=== PATIENT | male | born 1970 | race Caucasian/White ===

== ENCOUNTER 2016-05-21 23:55 | Emergency (ER) | payer BC ==
[2016-05-22] MEDS ORDERED: Aspirin Low Dose CHEW TAB* 81 MG PO ONE (00:20)
[2016-05-22] MEDS ORDERED: Nitroglycerin TAB 0.4 MG* 0.4 MG TAB SL PRN (00:20)
--- NOTE | 2016-05-22 00:59 | ED ---
Juan Miller Karl, scribed for Helder Hadley MD on 05/22/16 at 0012 . HPI Chest Pain - HPI Summary HPI Summary: Pt is a 46 y/o male that presents to the ED c/o non-radiating chest pain that began at approx 23:30 while the pt was getting ready to go to bed. Pt reported that his CP is a "tightness and burning" pain rated at a 6/10 at the worst and is currently at a 3/10. Pt also reported mild nausea and "clammyness" when he felt the initial CP. Hx: obesity, HTN. - History of Current Complaint Chief Complaint: EDChestPainROMI Time Seen by Provider: 05/22/16 00:00 Hx Obtained From: Patient Onset/Duration: Started Minutes Ago Timing: Constant, Lasting Minutes Initial Severity: Moderate Current Severity: Moderate Pain Intensity: 5 - CP Pain Scale Used: 0-10 Numeric Chest Pain Location: Left Anterior Character: Burning, Tightness Associated Signs and Symptoms: Positive: Chest Pain, Nausea - Allergy/Home Medications Allergies/Adverse Reactions: Allergies Allergy/AdvReac Type Severity Reaction Status Date / Time No Known Allergies Allergy Verified 09/01/15 12:23 PMH/Surg Hx/FS Hx/Imm Hx Endocrine/Hematology History: Denies: Hx Diabetes, Hx Thyroid Disease Cardiovascular History: Reports: Hx Hypertension Denies: Hx Hypercholesterolemia, Hx Pacemaker/ICD, Hx Peripheral Vascular Disease Musculoskeletal History: Denies: Hx Arthritis, Hx Rheumatoid Arthritis, Hx Osteoporosis, Hx Scoliosis Sensory History: Denies: Hx Cataracts, Hx Contacts or Glasses, Hx Glaucoma, Hx Hearing Aid Opthamlomology History: Denies: Hx Cataracts, Hx Contacts or Glasses, Hx Glaucoma Neurological History: Denies: Hx Headaches, Hx Seizures, Hx Transient Ischemic Attacks (TIA), Other Neuro Impairments/Disorders Psychiatric History: Reports: Hx Anxiety, Hx Depression Denies: Hx Panic Disorder - Surgical History Surgery Procedure, Year, and Place: WISDOM TEETH Infectious Disease History: No Infectious Disease History: Denies: Traveled Outside the [place] in Last 30 Days - Family History Known Family History: Positive: Cardiac Disease - father - [place] at 60 y/o, Hypertension, Other - obesity Negative: Diabetes - Social History Alcohol Use: None Hx Substance Use: No Substance Use Type: Reports: None Hx Tobacco Use: Yes Smoking Status (MU): Former Smoker Review of Systems Positive: Skin Diaphoresis - "clammyness" Eyes: Negative ENT: Negative Positive: Chest Pain Respiratory: Negative Positive: Nausea Genitourinary: Negative Musculoskeletal: Negative Skin: Negative Neurological: Negative Psychological: Normal All Other Systems Reviewed And Are Negative: Yes Physical Exam Triage Information Reviewed: Yes Vital Signs On Initial Exam: Initial Vitals Temp Pulse Resp BP Pulse Ox 98.3 F 65 20 181/111 97 05/21/16 23:56 05/21/16 23:56 05/21/16 23:56 05/21/16 23:56 05/21/16 23:56 Vital Signs Reviewed: Yes Appearance: Positive: Pain Distress - mild discomfort, Obese Skin: Positive: Warm Head/Face: Positive: Normal Head/Face Inspection Eyes: Positive: ALEXIA ENT: Positive: Hearing grossly normal Neck: Positive: Supple Respiratory/Lung Sounds: Positive: Clear to Auscultation, Breath Sounds Present Cardiovascular: Positive: Normal. Negative: Murmur Abdomen Description: Positive: Nontender, Soft Bowel Sounds: Positive: Present Musculoskeletal: Positive: Strength/ROM Intact Neurological: Positive: Sensory/Motor Intact, Alert, Oriented to Person Place, Time, Normal Gait Psychiatric: Positive: Affect/Mood Appropriate Diagnostics - Vital Signs Vital Signs Temp Pulse Resp BP Pulse Ox 05/21/16 23:56 98.3 F 65 20 181/111 97 - Laboratory Result Diagrams: 05/22/16 01:00 05/22/16 01:00 Lab Statement: Any lab studies that have been ordered have been reviewed, and results considered in the medical decision making process. - Radiology CXR Xray Interpretation: No Acute Changes Radiology Interpretation Completed By: ED Physician - IMPRESSION: No cardiopulmonary pathology noted. - EKG 00:04 EKG Interpretation: NSR at 64 bpm, No STEMI Re-Evaluation - Re-Evaluation First Eval Re-Evaluation Time: 05:00 Change: Improved - results d/w pt, need for admission in this pt with mult risk factors, good story, pt does not want to stay in hospital, wants to leave ama, explained risks including mi, . pt understands and accepts risk Chest Pain Course/Dx - Course Course Of Treatment: Pt was explained the risks of leaving the hospital AMA and fully understands the potential consequences including loss of life. - Diagnoses Provider Diagnoses: ACS (acute coronary syndrome) - Provider Notifications Discussed Care Of Patient With: Dr. Cook (Hospitalist) at 05:03 who agreed to admit the pt. Discharge - Discharge Plan Condition: Fair Disposition: AGAINST MEDICAL ADVICE Referrals: Jonah ORDONEZ,Moreno Rogers [Primary Care Provider] - The documentation as recorded by the josefinaibJuan ayala Karl accurately reflects the service I personally performed and the decisions made by me, Helder Hadley MD.
[2016-05-22 01:16] LABS: Hematocrit 41 % (42-52); Hemoglobin 13.7 g/dl (14.0-18.0); Mean Corpuscular HGB Conc 34 g/dl (31-36); Mean Corpuscular Hemoglobin 30 pg (27-31); Mean Corpuscular Volume 88 fL (80-94); Mean Platelet Volume 8 um3 (7.4-10.4); Red Blood Count 4.61 10^6/ul (4.0-5.4); Red Cell Distribution Width 14 % (10.5-15); White Blood Count 7.3 10^3/ul (3.5-10.8)
[2016-05-22 01:33] LABS: Albumin 3.6 g/dL (3.2-5.2); BUN/Creatinine Ratio 23.5 (8-20); Calcium 9.3 mg/dL (8.6-10.3); EGFR African American 162.2 (>60); EGFR Non-African American 126.1 (>60); Globulin 3.4 g/dL (2-4); Magnesium 1.9 mg/dL (1.9-2.7); Total Bilirubin 0.3 mg/dL (0.2-1.0)
[2016-05-22 01:58] LABS: Potassium 3.7 mmol/L (3.5-5.0)
[2016-05-22] MEDS ORDERED: Acetaminophen TAB* 325 MG PO PRN (05:08)
[2016-05-22] MEDS ORDERED: Albuterol 2.5 MG/3 ML NEB.SOL* (0.083%) INH PRN (05:10)
[2016-05-22] MEDS ORDERED: Metoprolol Succinate XL TAB* 25 MG PO ONE (05:11)
[2016-05-22] MEDS ORDERED: traMADol TAB* 50 MG PO PRN (05:12)
[2016-05-22] MEDS ORDERED: Ondansetron INJ* 2 MG/ML VIAL IV PRN (05:12)
[2016-05-22] MEDS ORDERED: Morphine INJ* 2 MG/ML 1 ML CARPUJECT IV PRN (05:12)
[2016-05-22] MEDS ORDERED: NS 0.9% 1000 ML* 1,000 ML IV SCH (05:15)
[2016-05-22 05:36] VITALS: BP 128/69
[2016-05-22] MEDS ORDERED: Omeprazole CAP* 20 MG PO SCH (06:00)
--- NOTE | 2016-05-22 07:34 | RAD ---
HISTORY: Chest pain COMPARISONS: September 01, 2015 VIEWS: 2: Frontal dual-energy and lateral views of the chest. FINDINGS: CARDIOMEDIASTINAL SILHOUETTE: The cardiomediastinal silhouette is stable. LIGIA: The ligia are normal. PLEURA: The costophrenic angles are sharp. No pleural abnormalities are noted. LUNG PARENCHYMA: The lungs are clear. ABDOMEN: The upper abdomen is clear. There is no subphrenic gas. BONES AND SOFT TISSUES: No bone or soft tissue abnormalities are noted. OTHER: None. IMPRESSION: NO ACTIVE CARDIOPULMONARY DISEASE.
[2016-05-22] MEDS ORDERED: Aspirin TAB* 325 MG PO SCH (09:00)
[2016-05-22] MEDS ORDERED: Docusate CAP* 100 MG PO SCH (09:00)
[2016-05-23] MEDS ORDERED: Heparin VIAL(*) 5000 UNITS/ML VIAL (FIVE THOUSAND) SUBCUT SCH (06:00)
== END 2016-05-22 05:36 | disposition left against medical advice (07) ==
LOC: ED 23:55
DX: J40 Bronchitis, not specified as acute or chronic (principal); R05 Cough; R06.02 Shortness of breath; F41.9 Anxiety disorder, unspecified
CPT/HCPCS: 36415; 71020; 80053; 83605; 83735; 84484; 85025; 93005; 96361; 96374; 99282; A9270-GY

== ENCOUNTER 2016-06-03 19:51 | Emergency (ER) | payer BC ==
[2016-06-03 21:30] VITALS: BP 186/103
--- NOTE | 2016-06-03 21:43 | UC ---
Hypertension HPI - HPI Summary HPI Summary: 46 yo male with elevated BP states he has been under a lot of pressure at work felt anxious and checked his BP it was elevated mild MARTIN (vise like) no CP no SOB no n/v - History of Current Complaint Chief Complaint: UCHeadache Stated Complaint: HIGH BLOOD PRESSURE, AND HEADACHE Time Seen by Provider: 06/03/16 21:16 Onset/Duration: Sudden Onset, Lasting Hours Timing: Constant Reported Blood Pressure Prior To Arrival:: 180/106 Aggravating Factor(s): Nothing Alleviating Factor(s): Nothing Associated Signs And Symptoms: Positive: Anxiety - chronic issue/has clonazepam. Negative: Chest Pain, Vision Changes - Allergies/Home Medications Allergies/Adverse Reactions: Allergies Allergy/AdvReac Type Severity Reaction Status Date / Time No Known Allergies Allergy Verified 09/01/15 12:23 Home Medications: Home Medications Metoprolol Tartrate TAB* [Lopressor TAB*] 40 mg PO DAILY 06/03/16 [History Confirmed 06/03/16] Olmesartan Medoxomil-Hydrochlo [Benicar Hct 40-25 mg] 1 tab PO DAILY 06/03/16 [ History Confirmed 06/03/16] PMH/Surg Hx/FS Hx/Imm Hx Previously Healthy: Yes Endocrine History Of: Denies: Diabetes, Thyroid Disease, Hyperthyroidism, Hypothyroidism Cardiovascular History Of: Reports: Hypertension Denies: Cardiac Disorders, Pacemaker/ICD Neurological History Of: Denies: TIA, Seizures Psychological History Of: Reports: Anxiety, Depression - Surgical History Surgical History: Yes Surgery Procedure, Year, and Place: WISDOM TEETH - Family History Known Family History: Positive: Cardiac Disease - father - [place] at 60 y/o, Hypertension, Other - obesity Negative: Diabetes - Social History Alcohol Use: None Substance Use Type: None Smoking Status (MU): Former Smoker When Did the Patient Quit Smoking/Using Tobacco: 10 + YRS Review of Systems Constitutional: Negative Skin: Negative Eyes: Negative ENT: Negative Respiratory: Negative Cardiovascular: Negative Gastrointestinal: Negative Genitourinary: Negative Motor: Negative Neurovascular: Negative Musculoskeletal: Negative Neurological: Headache Psychological: Negative All Other Systems Reviewed And Are Negative: Yes Physical Exam Triage Information Reviewed: Yes Appearance: Well-Appearing, No Pain Distress, Well-Nourished, Obese Vital Signs: Initial Vital Signs Temp 98.6 F 06/03/16 20:06 Pulse 75 06/03/16 20:06 Resp 18 06/03/16 20:06 BP 168/106 06/03/16 20:06 Pulse Ox 96 06/03/16 20:06 Vital Signs Reviewed: Yes Eye Exam: Other - fundi benign Eyes: Positive: Conjunctiva Clear ENT: Positive: Hearing grossly normal. Negative: Nasal congestion, Nasal drainage, Trismus, Muffled/hoarse voice Dental Exam: Normal Neck exam: Normal Neck: Positive: Nontender, No Lymphadenopathy Respiratory: Positive: Lungs clear, Normal breath sounds, No respiratory distress Cardiovascular: Positive: RRR, No Murmur, Pulses Normal Musculoskeletal: Positive: ROM Intact, No Edema Neurological: Positive: Alert Psychological Exam: Normal Skin Exam: Normal Hypertension Course/Dx - Differential Dx/Diagnosis Provider Diagnoses: hypertension Discharge - Discharge Plan Condition: Stable Disposition: HOME Patient Education Materials: Hypertension (ED) Referrals: Jonah ORDONEZ,Moreno Rogers [Primary Care Provider] - Additional Instructions: take one of your klonazepam tonight take your lopressor recheck bp in AM and call you MD for suggestion in terms of treatment/follow up
== END 2016-06-03 21:45 | disposition home or self-care (01) ==
LOC: UCEAST 19:51
DX: I10 Essential (primary) hypertension (principal)
CPT/HCPCS: 99211; G0463

== ENCOUNTER 2017-08-04 05:02 | Emergency (ER) | payer BC ==
[2017-08-04] MEDS ORDERED: Bupivacaine 0.5%* 50 ML VIAL INJ ONE (08:11)
[2017-08-04] MEDS ORDERED: Ibuprofen TAB* 800 MG PO ONE (08:11)
[2017-08-04] MEDS ORDERED: Sulfamethox/Trimethoprim DS 800/160* TAB PO ONE (08:11)
[2017-08-04] MEDS ORDERED: Benzocaine (DENTAL) 7.5%* 10 GM TOP.GEL TOPICAL ONE (08:11)
[2017-08-04] MEDS ORDERED: Cephalexin CAP* 500 MG PO ONE (08:11)
[2017-08-04] MEDS ORDERED: Benzocaine (DENTAL) 10%* TOP.GEL TOPICAL ONE (08:30)
[2017-08-04] MEDS ORDERED: Bupivacaine 0.25% SDV* 30 ML INJ ONE (08:30)
[2017-08-04 11:39] VITALS: BP 158/99
--- NOTE | 2017-08-18 12:57 | ED ---
Hai Miller Stephanie, scribed for Palmer Boo MD on 08/04/17 at 0813 . Skin Complaint - HPI Summary HPI Summary: The pt is a 47 y/o M presenting to the ED with c/o facial swelling by the nose and upper lip that began yesterday. Symptoms include fever of 100 F yesterday. The pt denies MARTIN and drainage from the affected site. - History of Current Complaint Chief Complaint: EDGeneral Time Seen by Provider: 08/04/17 07:57 Stated Complaint: FACIAL SWELLING Hx Obtained From: Patient Onset/Duration: Started Days Ago - 1, Still Present Skin Exposure Onset/Duration: Days Ago - 1 Timing: Constant Current Severity: Moderate Pain Intensity: 7 Pain Scale Used: 0-10 Numeric Skin Location: Nose, Other: - upper lip Character: Swelling, Redness Aggravating Symptom(s): Nothing Alleviating Symptom(s): Nothing Associated Signs & Symptoms: Fever - Allergy/Home Medications Allergies/Adverse Reactions: Allergies Allergy/AdvReac Type Severity Reaction Status Date / Time No Known Allergies Allergy Verified 09/01/15 12:23 PMH/Surg Hx/FS Hx/Imm Hx Endocrine/Hematology History: Denies: Hx Diabetes, Hx Thyroid Disease Cardiovascular History: Reports: Hx Hypertension, Other Cardiovascular Problems/ Disorders - OBESITY Denies: Hx Hypercholesterolemia, Hx Pacemaker/ICD, Hx Peripheral Vascular Disease Musculoskeletal History: Denies: Hx Arthritis, Hx Rheumatoid Arthritis, Hx Osteoporosis, Hx Scoliosis Sensory History: Denies: Hx Cataracts, Hx Contacts or Glasses, Hx Glaucoma, Hx Hearing Aid Opthamlomology History: Denies: Hx Cataracts, Hx Contacts or Glasses, Hx Glaucoma Neurological History: Denies: Hx Headaches, Hx Seizures, Hx Transient Ischemic Attacks (TIA), Other Neuro Impairments/Disorders Psychiatric History: Reports: Hx Anxiety, Hx Depression Denies: Hx Panic Disorder - Surgical History Surgery Procedure, Year, and Place: WISDOM TEETH - Immunization History Date of Influenza Vaccine: has not received Infectious Disease History: Yes Infectious Disease History: Denies: Traveled Outside the [place] in Last 30 Days - Family History Known Family History: Positive: Cardiac Disease - father - [place] at 60 y/o, Hypertension, Other - obesity Negative: Diabetes - Social History Occupation: Employed Full-time Lives: Alone Alcohol Use: None Hx Substance Use: No Substance Use Type: Reports: None Hx Tobacco Use: Yes Smoking Status (MU): Former Smoker Review of Systems Positive: Fever Positive: Other - redness and edema over the naris and upper lip, Negative: drainage from the naris Negative: Headache All Other Systems Reviewed And Are Negative: Yes Physical Exam - Summary Physical Exam Summary: 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 (-) Distressed Skin: Warm, Dry HENT: Normocephalic; Atraumatic, no intraoral abscess, induration at the exit of the naris on the R side with erythema, tiny amount of fluctuance at the naris Eyes: Conjunctiva normal Neck: Musculoskeletal ROM normal neck. (-) JVD, (-) Stridor, (-) Tracheal deviation Cardio: Rhythm regular, rate normal, Heart sounds normal; Intact distal pulses; The pedal pulses are 2+ and symmetric. Radial pulses are 2+ and symmetric. (-) Murmur Pulmonary/Chest wall: Effort normal. (-) Respiratory distress, (-) Wheezes, (-) Rales Abd: Soft, (-) Tenderness, (-) Distension, (-) Guarding, (-) Rebound Musculoskeletal: (-) Edema Lymph: (-) Cervical adenopathy Neuro: Alert, Oriented x3 Psych: Mood and affect Normal Triage Information Reviewed: Yes Vital Signs On Initial Exam: Initial Vitals Temp Pulse Resp BP Pulse Ox 98.6 F 108 20 202/111 95 08/04/17 05:03 08/04/17 05:03 08/04/17 05:03 08/04/17 05:03 08/04/17 05:03 Vital Signs Reviewed: Yes Procedures - Incision and Drainage Site: exit of naris on the R side Anesthesia: Other - 1 ml of bupivacaine Instrument(s): Needle Packing: Other - none Diagnostics - Vital Signs Vital Signs Temp Pulse Resp BP Pulse Ox 08/04/17 05:03 98.6 F 108 20 202/111 95 - Laboratory Lab Statement: Any lab studies that have been ordered have been reviewed, and results considered in the medical decision making process. Course/Dx - Course Course Of Treatment: ED physician completed I&D at 09:20. The pt felt immediate relief. ED physician offered him larger incision to facilitate drainage but he refused this. - Diagnoses Provider Diagnoses: Abscess of nasal cavity Discharge - Sign-Out/Discharge Documenting (check all that apply): Discharge - ... - Discharge Plan Condition: Good Disposition: HOME Prescriptions: Cephalexin CAP* [Keflex CAP*] 500 mg PO QID #40 cap Sulfamethox/Trimethoprim DS* [Bactrim DS 800/160 TAB*] 1 tab PO BID #20 tab Patient Education Materials: Cellulitis (ED) Referrals: Jonah ORDONEZ,Moreno Rogers [Primary Care Provider] - 2 Days Additional Instructions: ED physician recommends the pt take Ibuprofen when needed and completes warm compresses over nose. RETURN TO THE EMERGENCY DEPARTMENT FOR CHANGING OR WORSENING SYMPTOMS - Billing Disposition and Condition Condition: GOOD Disposition: HOME The documentation as recorded by the Hai rajput Stephanie accurately reflects the service I personally performed and the decisions made by me, Palmer Boo MD.
== END 2017-08-04 10:36 | disposition home or self-care (01) ==
LOC: ED 05:02
DX: J32.9 Chronic sinusitis, unspecified (principal); R50.9 Fever, unspecified
CPT/HCPCS: 99282; A9270-GY

== ENCOUNTER 2018-06-09 19:28 | Emergency (ER) | payer BC ==
--- OUTSIDE RECORDS SUMMARY | 2018-06-09 19:52 | XMS REPORT | Continuity of Care Document ---
:1970 External Reference #:[id number] Author Name Mike Ruiz M.D. Address [address] [place] [address] Care Team Providers Name Role Phone Moreno Mckenzie M.D. Care Team Information Hull Sorter Unavailable Moreno Mckenzie M.D. Primary Care Physician Unavailable Payers Type Date Identification Numbers Payment Provider Subscriber Effective: Policy Number: [id number] [facility] Zoe Arnold 2018 [facility] PayID: [id number] [address] [address] [place] [address] Advance Directives Description No Information Available Problems Date Description Provider Status Onset: 05/06/2011 Essential hypertension Mike Ruiz M.D. Active Onset: 10/04/2013 Musculoskeletal disorder of the Mike Ruiz M.D. Active neck Onset: 10/04/2013 Allergic rhinitis Mike Ruiz M.D. Active Onset: 05/24/2013 Extrinsic asthma without status Mike Ruiz M.D. Active asthmaticus Onset: 07/21/2012 Allergic rhinitis Mike Ruiz M.D. Active Onset: 07/21/2012 Refractory migraine without aura Mike Ruiz M.D. Active Onset: 07/21/2012 Morbid obesity Mike Ruiz M.D. Active Onset: 07/21/2012 Obstructive sleep apnea syndrome Mike Ruiz M.D. 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 Unknown Pack Daily Quit at age 36. Smoking Status Reviewed: 06/01/18 Former Cigarette Smoker 1 Smoker of 15 years. Pack Daily Quit at age 36. Tobacco Use Start: Unknown Never Smoked Cigars Tobacco Use Start: Unknown Never Smoked A Pipe Smokeless Tobacco Never Used Smokeless Tobacco ETOH Use Does not drink alcohol Tobacco Use Start: Unknown End: Patient is a former Unknown smoker Allergies, Adverse Reactions, Alerts Description No Known Drug Allergies Medications Medication Date Status Form Strength Qnty SIG Indications Ordering Provider Benicar/HCTZ 00/00/ Active 40/25mg one po qd Keenen, 0000 Moreno Stallworth Metoprolol 00/ Active Tablets ER 100mg 1 by Unknown Succinate ER 0000 24HR mouth every day Amlodipine / Active Tablets 5mg 1 by Unknown 0000 mouth every day Flovent HFA 05/24/ Hx Aerosol 110mcg/Act 3unit 2 puffs 493.00 Mike White 2013 - s bid use Strominge glenis beasley M.D. 2018 spacer before brushing teeth Fluticasone 05/06/ Hx Suspension 50mcg/Act 3unit 2 sprays 477.9 Mike White Propionate 2010 - s in each Strominge 05/24/ nostril Basim beasley 2013 qday Micardis /00/ Hx Unknown 2012 Metoprolol 00/00/ Hx Unknown 2012 Synthroid 00/00/ Hx Unknown 2012 Multivitamins 00// Hx one po qd Self 2018 Losartan 00// Hx 40-25 Keenen, Potassium/Mcdaniels chlorothiazide MAllie 2012 Ventolin HFA 00/ Hx Unknown 2018 Toprol XL 0000/ Hx 1/2 Pill Keenen, 0000 - PO qd Moreno 06/01/ Basim 2018 Immunizations Description No Information Available Vital Signs Date Vital Result Comment 06/01/2018 3:37pm Weight 399.00 lb Weight 180.986 kg Height 67 inches 5'7" Height in cm's 170.2 cm BMI (Body Mass Index) 62.5 kg/m2 10/04/2013 1:27pm BP Systolic 143 mmHg BP Diastolic 90 mmHg Heart Rate 82 /min Respiratory Rate 16 /min Weight 362.00 lb Weight 164.203 kg Height 67.50 inches 5'7.50" Height in cm's 171.4 cm BMI (Body Mass Index) 55.9 kg/m2 05/24/2013 10:53am BP Systolic 141 mmHg BP Diastolic 95 mmHg Heart Rate 78 /min Respiratory Rate 17 /min Weight 388.00 lb Weight 175.997 kg Height 67.50 inches 5'7.50" Height in cm's 171.4 cm BMI (Body Mass Index) 59.9 kg/m2 02/14/2013 10:03am BP Systolic 145 mmHg PCP changed his BP Med BP Diastolic 102 mmHg PCP changed his BP Med Heart Rate 81 /min Respiratory Rate 16 /min Weight 345.00 lb Weight 156.492 kg Height 67.50 inches 5'7.50" Height in cm's 171.4 cm BMI (Body Mass Index) 53.2 kg/m2 07/21/2012 2:45pm BP Systolic 138 mmHg Neck Circum 17.50 BP Diastolic 91 mmHg Neck Circum 17.50 Heart Rate 73 /min Respiratory Rate 16 /min Weight 345.00 lb Weight 156.492 kg Height 67.50 inches 5'7.50" Height in cm's 171.4 cm BMI (Body Mass Index) 53.2 kg/m2 07/21/2012 2:38pm BP Systolic 136 mmHg BP Diastolic 91 mmHg Heart Rate 76 /min Respiratory Rate 16 /min Weight 345.00 lb Weight 156.490 kg Height 67.50 inches 5'7.50" Height in cm's 171.4 cm BMI (Body Mass Index) 53.2 kg/m2 05/06/2011 10:06am BP Systolic 157 mmHg BP Diastolic 94 mmHg Heart Rate 64 /min Respiratory Rate 16 /min Weight 316.00 lb Weight 143.338 kg Height 67 inches 5'7" Height in cm's 170.2 cm BMI (Body Mass Index) 49.5 kg/m2 Results Description No Information Available Procedures Date Code Description Status 08/09/2013 27761 Prick Test Completed 05/24/2013 14377 Demonstration/Eval. Of Patient Utilization Of Completed Spacer/Nebulizer 05/24/2013 57472 Bronchospasm Evaluation Completed 07/11/2011 62271 Interest Income Completed 05/14/2011 05561 Prick Test Completed Encounters Type Date Location Provider Dx Diagnosis Office Visit 06/01/2018 [place],Giovanna White H92.01 Otalgia, right ear 4:00p 05/11/07 Basim Ruiz M50.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, unsp cervical region Office 10/04/2013 [place],[facility] Mike White 493.00 Asthma, Visit 3:45p 05/11/07 Reg Ruiz/Atopic Basim 327.23 Obstructive Sleep Apnea Adult Pediatric 477.8 Rhinitis, Perennial, Allergy 723.9 Cervical Region Musculoskeletal Disorders & Symptoms Unspec Office Visit 05/24/2013 [place],After Mike White 327.23 Obstructive 10:45a 05/11/07 Basim Ruiz Sleep Apnea Adult Pediatric 278.01 Obesity Morbid 493.00 Asthma, Extrinsic/Atopic Office Visit 02/14/2013 [place],After Mike White 327.23 Obstructive 10:00a 05/11/07 Basim Ruiz Sleep Apnea Adult Pediatric 278.01 Obesity Morbid Office Visit 07/21/2012 [place],After Mike White 327.23 Obstructive 2:45p 05/11/07 Basim Ruiz Sleep Apnea Adult Pediatric 278.01 Obesity Morbid 346.11 Migraine Common W/ Intractable 477.9 Rhinitis, Allergic Office Visit 05/06/2011 [place],After Mike White 478.19 Mucocele Of 10:00a 05/11/07 Basim Ruiz Sinus/Perf Nasal Septum 478.1-4 Obstruction Of Nasal Airway 477.9 Rhinitis, Allergic 401.9 High Blood Pressure Or Hypertension/Unspecified Plan of Treatment Future Appointment(s):06/28/2018 11:00 am - Leonardo Islas MA, CCC-A at [place],After 05/11/801 10:30 am - Mike Ruiz M.D. at [place], After 05/11/800 - Mike Ruiz M.D.H92.01 Otalgia, right earComments:The patient has been having some right ear and neck pain. It hurts with head movement. This is a cervical disc problem and not an ear problem. It has only been a couple of days so I recommended Ibuprofen and massage. He is going to [facility] in a month or so for hearing and if needed I will refer him to PT.M50.10 Cervical disc disorder with radiculopathy, unspecified cervi
--- NOTE | 2018-06-09 20:47 | ED ---
GI/ HPI - HPI Summary HPI Summary: Patient is a 48 y/o M presenting to ED with complaints of irregular bowel movements, abdominal discomfort. He reports that he has an appointment with GI Dr. Amanda in three weeks. In the meantime, he was sent to PCP for abdominal US five days ago. Review of medical records showed that abdominal US revealed "# Hepatomegaly and hepatosteatosis new compared with the 2010 CT. #. Negative for gallbladder pathology." Patient states that he has been having "irregular bowel habits" and has been fluctuating between diarrhea and constipation. He reports that he has changed to a bland diet. Patient notes that he felt fine all day until dinner. Afterwards, he felt abdominal discomfort. Patient had a bowel movement productive of minimal stool. He notes that he felt better afterwards but claims he is concerned of a blockage. Patient notes no PSHx of abdominal surgery. In the room, he reports some abdominal discomfort, denies nausea at present. No fever, no vomiting, no chest pain reported. He also notes minimal passage of gas. On triage, pain is rated 1/10. Nothing is noted to aggravate/ alleviate Sx. Home medications and allergies are reviewed. - History of Current Complaint Chief Complaint: EDAbdPain Time Seen by Provider: 06/09/18 20:20 Stated Complaint: ABD PAIN Hx Obtained From: Patient Onset/Duration: Started Hours Ago - abdominal discomfort, bowel movement productive of minimal stool, Still Present Timing: Lasting Hours - abdominal discomfort, bowel movement productive of minimal stool Severity: Mild - 1/10 Current Severity: Mild - 1/10 Pain Intensity: 1 Location of Pain: Epigastric Associated Signs and Symptoms: Positive: Constipation, Diarrhea, Abdominal Pain , Other: - POSITIVE - BOWEL MOVEMENT PRODUCTIVE OF MINIMAL STOOL, MINIMAL GAS PASSAGE. Negative: Nausea, Vomiting, Fever, Chest Pain Aggravating Factor(s): Nothing Alleviating Factor(s): Nothing - Allergy/Home Medications Allergies/Adverse Reactions: Allergies Allergy/AdvReac Type Severity Reaction Status Date / Time No Known Allergies Allergy Verified 06/09/18 19:47 PMH/Surg Hx/FS Hx/Imm Hx Endocrine/Hematology History: Denies: Hx Diabetes, Hx Thyroid Disease Cardiovascular History: Reports: Hx Hypertension, Other Cardiovascular Problems/ Disorders - OBESITY Denies: Hx Hypercholesterolemia, Hx Pacemaker/ICD, Hx Peripheral Vascular Disease Musculoskeletal History: Denies: Hx Arthritis, Hx Rheumatoid Arthritis, Hx Osteoporosis, Hx Scoliosis Sensory History: Denies: Hx Cataracts, Hx Contacts or Glasses, Hx Glaucoma, Hx Hearing Aid Opthamlomology History: Denies: Hx Cataracts, Hx Contacts or Glasses, Hx Glaucoma Neurological History: Denies: Hx Headaches, Hx Seizures, Hx Transient Ischemic Attacks (TIA), Other Neuro Impairments/Disorders Psychiatric History: Reports: Hx Anxiety, Hx Depression Denies: Hx Panic Disorder - Surgical History Surgery Procedure, Year, and Place: WISDOM TEETH - Immunization History Date of Influenza Vaccine: has not received Infectious Disease History: Yes Infectious Disease History: Denies: Traveled Outside the [place] in Last 30 Days - Family History Known Family History: Positive: Cardiac Disease - father - [place] at 60 y/o, Hypertension, Other - obesity Negative: Diabetes - Social History Alcohol Use: None Hx Substance Use: No Substance Use Type: Reports: None Hx Tobacco Use: Yes Smoking Status (MU): Former Smoker Review of Systems Negative: Fever Negative: Chest Pain Positive: Abdominal Pain, Diarrhea, Other - POSITIVE - CONSTIPATION, BOWEL MOVEMENT PRODUCTIVE OF MINIMAL STOOL, MINIMAL GAS PASSAGE . Negative: Vomiting, Nausea All Other Systems Reviewed And Are Negative: Yes Physical Exam - Summary Physical Exam Summary: Appearance: Well appearing, no pain distress Skin: warm, dry, reflects adequate perfusion Head/face: normal Eyes: EOMI, ALEXIA ENT: normal Neck: supple, non-tender Respiratory: CTA, breath sounds present Cardiovascular: RRR, pulses symmetrical Abdomen: epigastric tenderness, soft Musculoskeletal: normal, strength/ROM intact Neuro: normal, sensory motor intact, A&Ox3 Triage Information Reviewed: Yes Vital Signs On Initial Exam: Initial Vitals Temp Pulse Resp BP Pulse Ox 99.0 F 84 16 129/81 95 06/09/18 19:40 06/09/18 19:40 06/09/18 19:40 06/09/18 19:40 06/09/18 19:40 Vital Signs Reviewed: Yes Diagnostics - Vital Signs Vital Signs Temp Pulse Resp BP Pulse Ox 06/09/18 19:40 99.0 F 84 16 129/81 95 - Laboratory Result Diagrams: 06/09/18 21:10 Lab Statement: Any lab studies that have been ordered have been reviewed, and results considered in the medical decision making process. - EKG 2105 Cardiac Rate: NL - rate of 74 BPM EKG Rhythm: Sinus Rhythm Summary of EKG Findings: EKG showed sinus rhythm with rate of 74 BPM, no acute changes. GIGU Course/Dx - Course Course Of Treatment: Patient is a 48 y/o M presenting to ED with complaints of irregular bowel movements, abdominal discomfort. He reports that he has an appointment with GI Dr. Amanda in three weeks. In the meantime, he was sent to PCP for abdominal US five days ago. Review of medical records showed that abdominal US revealed "#Hepatomegaly and hepatosteatosis new compared with the 2010 CT. #. Negative for gallbladder pathology." Patient states that he has been having "irregular bowel habits" and has been fluctuating between diarrhea and constipation. He reports that he has changed to a bland diet. Patient notes that he felt fine all day until dinner. Afterwards, he felt abdominal discomfort. Patient had a bowel movement productive of minimal stool. He notes that he felt better afterwards but claims he is concerned of a blockage. Patient notes no PSHx of abdominal surgery. In the room, he reports some abdominal discomfort, denies nausea at present. No fever, no vomiting, no chest pain reported. He also notes minimal passage of gas. On physical exam, epigastric tenderness is noted. EKG showed sinus rhythm with rate of 74 BPM, no acute changes. During ED course, patient recieved fluids. Bloodwork obtained. Patient is signed out to Dr. Conway pending UA, results of labs, and CT abd/pel. - Diagnoses Provider Diagnoses: Abdominal pain Discharge - Sign-Out/Discharge Documenting (check all that apply): Sign-Out Patient Signing out patient TO: Eric Conway Receiving patient FROM: Jim Garrido - Discharge Plan Condition: Stable Referrals: Jonah ORDONEZ,Moreno Rogers [Primary Care Provider] - - Attestation Statements Document Initiated by Scribe: Yes Documenting Scribe: TRIXIE GRIFFIN Provider For Whom Jesi is Documenting (Include Credential): JIM GARRIDO MD Scribe Attestation: TRIXIE Miller , scribed for JIM GARRIDO MD on 06/09/18 at 2131. Status of Scribe Document: Ready
[2018-06-09] MEDS ORDERED: NS 0.9% 1000 ML** 1,000 ML IV ONE (20:58)
[2018-06-09 21:17] LABS: ABS Basophils 0.1 10^3/ul (0-0.2); ABS Eosinophils 0.1 10^3/ul (0-0.6); ABS Lymphocytes 1.5 10^3/ul (1.0-4.8); ABS Monocytes 0.5 10^3/ul (0-0.8); ABS Neutrophils 5.9 10^3/ul (1.5-7.7); ABS Nucleated RBC 0 10^3/ul; Eosinophil % 1.4 %; Hematocrit 40 % (42-52); Hemoglobin 13.4 g/dl (14.0-18.0); Lymphocyte % 18.9 %; Mean Corpuscular HGB Conc 34 g/dl (31-36); Mean Corpuscular Hemoglobin 29 pg (27-31); Mean Corpuscular Volume 86 fL (80-94); Mean Platelet Volume 8.2 fL (7.4-10.4); Nucleated Red Blood Cells % 0; Platelet Count 218 10^3/ul (150-450); Red Blood Count 4.63 10^6/ul (4.00-5.40); Red Cell Distribution Width 16 % (10.5-15); White Blood Count 8.1 10^3/ul (3.5-10.8)
[2018-06-09 21:25] LABS: Activated Partial Thrombo Time 33.7 seconds (26.0-36.3); INR 1.05 (0.77-1.02)
[2018-06-09 21:36] LABS: Albumin/Globulin Ratio 1.1 (1-3); BUN/Creatinine Ratio 14.1 (8-20); C Reactive Protein 10.45 mg/L (<8.01); Calcium 9.5 mg/dL (8.6-10.3); EGFR African American 129.1 (>60); EGFR Non-African American 106.7 (>60); Globulin 3.7 g/dL (2-4); Potassium 3.4 mmol/L (3.5-5.0); Total Bilirubin 0.4 mg/dL (0.2-1.0); Total Protein 7.7 g/dL (6.4-8.9)
[2018-06-09 22:20] LABS: Urine Appearance Clear; Urine Bacteria Absent (Absent); Urine Bilirubin Negative (Negative); Urine Blood 1+ (Negative); Urine Color Yellow; Urine Glucose Negative (Negative); Urine Ketones Negative (Negative); Urine Nitrite Negative (Negative); Urine Protein Negative (Negative); Urine Red Blood Cell Trace(0-2/hpf) (Absent); Urine Specific Gravity 1.008 (1.010-1.030); Urine Urobilinogen Negative (Negative); Urine White Blood Cell Trace(0-5/hpf) (Absent)
[2018-06-09] MEDS ORDERED: Iohexol 300* (CONTRAST) 10 ML SDV IV ONE (22:45)
--- NOTE | 2018-06-10 01:01 | ED ---
Progress - Progress Note Progress Note: 005 ABD/PELV CT 1. No acute intra-abdominal pathology. 2. Other chronic findings, as above. ED Physician has reviewed this report. Re-Evaluation - Re-Evaluation 1st eval Re-Evaluation Time: 01:00 Change: Improved Comment: Pt has improved and is stable. He will be sent home. Course/Dx - Course Course Of Treatment: Patient is a 48 y/o M presenting to ED with complaints of irregular bowel movements, abdominal discomfort. He reports that he has an appointment with GI Dr. Amanda in three weeks. In the meantime, he was sent to PCP for abdominal US five days ago. Review of medical records showed that abdominal US revealed "#Hepatomegaly and hepatosteatosis new compared with the 2010 CT. #. Negative for gallbladder pathology." Patient states that he has been having "irregular bowel habits" and has been fluctuating between diarrhea and constipation. He reports that he has changed to a bland diet. Patient notes that he felt fine all day until dinner. Afterwards, he felt abdominal discomfort. Patient had a bowel movement productive of minimal stool. He notes that he felt better afterwards but claims he is concerned of a blockage. Patient notes no PSHx of abdominal surgery. In the room, he reports some abdominal discomfort, denies nausea at present. No fever, no vomiting, no chest pain reported. He also notes minimal passage of gas. On physical exam, epigastric tenderness is noted. EKG showed sinus rhythm with rate of 74 BPM, no acute changes. During ED course, patient recieved fluids. Bloodwork obtained. Patient is signed out to Dr. Conway pending UA, results of labs, and CT abd/pel. - Diagnoses Provider Diagnoses: Abdominal pain Discharge - Sign-Out/Discharge Documenting (check all that apply): Patient Departure, Receiving Sign-Out Receiving patient FROM: Asif Murphy Patient Received Moderate/Deep Sedation with Procedure: No - Discharge Plan Condition: Stable Disposition: HOME Referrals: Jonah ORDONEZ,Moreno Rogers [Primary Care Provider] - - Attestation Statements Document Initiated by Scribe: Yes Documenting Scribe: Colleen Alicia Provider For Whom Jesi is Documenting (Include Credential): Eric Conway MD. Scribe Attestation: Colleen Miller, scribed for Eric Conway MD. on 06/10/18 at 0100. Status of Scribe Document: Ready
[2018-06-10 01:13] VITALS: BP 0/0
== END 2018-06-10 01:12 | disposition home or self-care (01) ==
LOC: ED 19:28
DX: R10.9 Unspecified abdominal pain (principal); I10 Essential (primary) hypertension; Z87.891 Personal history of nicotine dependence; F41.9 Anxiety disorder, unspecified
CPT/HCPCS: 36415; 74177; 80053; 81003; 81015; 83605; 83690; 84484; 85025; 85610; 85730; 86140; 87086; 93005; 99282; Q9967

== ENCOUNTER 2018-08-09 20:08 | Emergency (ER) | payer BC ==
--- OUTSIDE RECORDS SUMMARY | 2018-08-09 20:36 | XMS REPORT | Continuity of Care Document ---
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 Cassandra Rogers MD Primary Care Physician Unavailable Payers Date Identification Numbers Payment Provider Subscriber Policy Number: [id number] [employer] Doug Arnold PayID: [id number] [address] [address] [place] [address] Advance Directives Description No Information Available Problems Date Description Provider Status Onset: 06/23/2018 Generalized abdominal pain Noble Amanda MD Active Family History Date Family Member(s) Observation Comments Father Heart Disease Social History Type Date Description Comments Sex Unknown Tobacco Use Start: Unknown End: Unknown Patient is a former smoker Smoking Status Reviewed: 06/23/18 Patient is a former smoker Allergies, Adverse Reactions, Alerts Description No Known Drug Allergies Medications Medication Date Status Form Strength Qnty SIG Indications Ordering Provider Hyoscyamine Active Tablets ER 0.375mg 30tabs 1 by mouth R10.84 Noble Diaz Sulfate ER 019 12HR every day MD Treasure Metoprolol Active Tablets ER 100mg Unknown Succinate ER 000 24HR Omeprazole 0 Active Capsules 40mg Unknown [address] Olmesartan Active Tablets 40-25mg Unknown Medoxomil/Hydr 000 ochlorothiazid e Amlodipine Active Tablets 5mg Unknown Besylate 000 Allergy Active Tablets 10mg Unknown 000 Colyte With Hx Solution 240gm 4000ml by mouth R10.84 Noble Diaz Flavor Packs 019 - Rec as Treasure directed MD [place] Immunizations Description No Information Available Vital Signs Date Vital Result Comment 06/23/2018 2:39pm Height 67 inches 5'7" Weight 383.00 lb BP Systolic 134 mmHg BP Diastolic 68 mmHg Heart Rate 83 /min BMI (Body Mass Index) 60.0 kg/m2 Results Description No Information Available Procedures Description No Information Available Encounters Description No Information Available Plan of Treatment Future Appointment(s):08/09/2018 11:45 am - Noble Amanda MD at [facility]06/23/2018 - Noble Amanda, MDR10.84 Generalized abdominal painNew Medication:Hyoscyamine Sulfate ER 0.375 mg - 1 by mouth every dayColyte With Flavor Packs 240 gm - by mouth as directedComments: RISKS AND BENEFITS OF THE PROCEDURE WERE DISCUSSED WITH PATIENT. I had a very long discussion with the patient regarding his symptoms. He is 48 years old and has never had a colonoscopy. We discussed screening strategies. He does need a colonoscopy. Given his super morbidly obese body habitus he should be performed at the hospital. We discussed irritable bowel syndrome I would like to trial him on Levbid. He is understanding and agreeable
--- OUTSIDE RECORDS SUMMARY | 2018-08-09 20:36 | XMS REPORT | Continuity of Care Document ---
:1970 External Reference #:[id number] Author Name Mike Ruiz M.D. Address [address] [place] [address] Care Team Providers Name Role Phone Moreno Mckenzie M.D. 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 Primary Care Physician Unavailable Payers Date Identification Numbers Payment Provider Subscriber Effective: Policy Number: [id number] [facility] Doug Arnold 2018 [place] PayID: [id number] [address] [address] [place] [address] Advance Directives Description No Information Available Problems Date Description Provider Status Onset: 05/06/2011 Essential hypertension Mike Ruiz M.D. Active Onset: 07/21/2012 Obstructive sleep apnea syndrome Mike Ruiz M.D. Active Onset: 07/21/2012 Morbid obesity Mike Ruiz M.D. Active Onset: 07/21/2012 Refractory migraine without aura Mike Ruiz M.D. Active Onset: 07/21/2012 Allergic rhinitis Mike Ruiz M.D. Active Onset: 05/24/2013 Extrinsic asthma without status Mike Ruiz M.D. Active asthmaticus Onset: 10/04/2013 Allergic rhinitis Mike Ruiz M.D. Active Onset: 10/04/2013 Musculoskeletal disorder of the Mike Ruiz M.D. 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 Unknown Pack Daily Quit at age 34. Smoking Status Reviewed: 07/14/18 Former Cigarette Smoker 1 Smoker of 15 years. Pack Daily Quit at age 34. Tobacco Use Start: Unknown Never Smoked Cigars Tobacco Use Start: Unknown Never Smoked A Pipe Smokeless Tobacco Never Used Smokeless Tobacco ETOH Use Does not drink alcohol Tobacco Use Start: Unknown End: Patient is a former Unknown smoker Allergies, Adverse Reactions, Alerts Description No Known Drug Allergies Medications Medication Date Status Form Strength Qnty SIG Indications Ordering Provider Benicar/HCTZ 00// Active 40/25mg one po qd Keenen, 0000 Moreno Stallworth Metoprolol / Active Tablets ER 100mg 1 by Unknown Succinate ER 0000 24HR mouth every day Amlodipine / Active Tablets 5mg 1 by Unknown 0000 mouth every day Omeprazole / Active Capsules DR 40mg Keenen, 0000 Moreno Stallworth Lisinopril-Hydr / Active Tablets 20-25mg Keenealice, ochlorothiazide Moreno Stallworth Klonopin / Active Tablets 0.5mg as needed Unknown 0000 for anxiety Vitamin D / Active Tablets 1000Unit 1 by Unknown 0000 mouth every day Flovent HFA 05/24/ Hx Aerosol 110mcg/Act 3unit 2 puffs 493.00 Mike White 2014 - s bid use Strominge 06/01/ glenis beasley M.D. 2019 spacer before brushing teeth Fluticasone 05/06/ Hx Suspension 50mcg/Act 3unit 2 sprays 477.9 Mike White Propionate 2010 - s in each Strominge 05/24/ nostril Basim beasley 2013 qday Micardis /00/ Hx Unknown 2012 Metoprolol /00/ Hx Unknown 2012 Synthroid / Hx Unknown 2012 Multivitamins // Hx one po qd Self 2018 Losartan // Hx 40-25 Keenen, Potassium/Manlius - Moreno chlorothiazide 02/14/ MXimenaDXimena 2012 Ventolin HFA /00/ Hx Unknown 2018 Toprol XL / Hx 1/2 Pill Keenen, 0000 - PO qd Moreno 06/01/ Basim 2018 Immunizations Description No Information Available Vital Signs Date Vital Result Comment 07/14/2018 1:53pm Weight 372.00 lb Weight 168.739 kg Height 67 inches 5'7" Height in cm's 170.2 cm BMI (Body Mass Index) 58.3 kg/m2 06/01/2018 3:37pm Weight 399.00 lb Weight 180.986 [...] Information Available Procedures Date Code Description Status 06/28/2018 65893 Tympanometry Completed 06/28/2018 08332 Comprehensive Audiogram Completed 08/09/2013 37490 Prick Test Completed 05/24/2013 91707 Demonstration/Eval. Of Patient Utilization Of Completed Spacer/Nebulizer 05/24/2013 32716 Bronchospasm Evaluation Completed 07/11/2011 94416 Interest Income Completed 05/14/2011 09199 Prick Test Completed Encounters Type Date Location Provider Dx Diagnosis Office Visit 07/14/2018 [place] Mike White H93.A3 Pulsatile 2:00p 05/11/07 Basim Ruiz tinnitus, bilateral R51 Headache Office Visit 06/28/2018 [place] Mike White G47.33 Obstructive 10:30a 05/11/07 Basim Ruiz sleep apnea (adult) (pediatric) E66.01 Morbid (severe) obesity due to excess calories H90.3 Sensorineural hearing loss, bilateral R51 Headache H93.A3 Pulsatile tinnitus, bilateral Office Visit 06/01/2018 [place] Mike White H92.01 Otalgia, right 4:00p 05/11/07 Basim Ruiz ear M50.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, unsp cervical region Office 10/04/2013 [place] Mike White 493.00 Asthma, Visit 3:45p 05/11/07 [place] Extrinsic/Atopic Basim 327.23 Obstructive Sleep Apnea Adult Pediatric 477.8 Rhinitis, Perennial, Allergy 723.9 Cervical Region Musculoskeletal Disorders & Symptoms Unspec Office Visit 05/24/2013 [place] Mike White 327.23 Obstructive 10:45a 05/11/07 Basim Ruiz Sleep Apnea Adult Pediatric 278.01 Obesity Morbid 493.00 Asthma, Extrinsic/Atopic Office Visit 02/14/2013 [place] Mike White 327.23 Obstructive 10:00a 05/11/07 Basim Ruiz Sleep Apnea Adult Pediatric 278.01 Obesity Morbid Office Visit 07/21/2012 [place] Mike White 327.23 Obstructive 2:45p 05/11/07 Basim Ruiz Sleep Apnea Adult Pediatric 278.01 Obesity Morbid 346.11 Migraine Common W/ Intractable 477.9 Rhinitis, Allergic Office Visit 05/06/2011 [place] Mike White 478.19 Mucocele Of 10:00a 05/11/07 Juan Ruiz. Sinus/Perf Nasal Septum 478.1-4 Obstruction Of Nasal Airway 477.9 Rhinitis, Allergic 401.9 High Blood Pressure Or Hypertension/Unspecified Plan of Treatment 07/14/2018 - Mike Ruiz M.D.H93.A3 Pulsatile tinnitus, bilateralComments:patient presented today because he had some question about the MRI. I explained why I want it and why the contrast. He was worried because in May he had a contrasted CT scan and if this will put him at increased risk. There is risk with the contrast, but having that CT and this MRI does not overlap.R51 Headache
[2018-08-09] MEDS ORDERED: Pantoprazole IV* 40 MG IV ONE (21:42)
[2018-08-09] MEDS ORDERED: Al Hydrox/Mg Hydrox/Simet LIQ* 30 ML UDC PO ONE (21:42)
[2018-08-09] MEDS ORDERED: Lidocaine 2% VISCOUS* 15 ML UDC PO ONE (21:43)
--- NOTE | 2018-08-09 21:52 | ED ---
Abdominal Pain/Male - HPI Summary HPI Summary: Pt is a 48 y/o M presenting to the ED with a chief complaint of LUQ abd pain onset 1800. He had an endoscopy and colonoscopy today around 1300, returned home around 1600, ate a banana and mashed potatoes, only passed gas once, and then his abd pain began again. He had one polyp taken out during his procedure today, and had multiple biopsies taken. He usually has this pain, and he takes Prilosec for it, but he did not take it today. He denies fever or vomiting. - History of Current Complaint Chief Complaint: EDAbdPain Stated Complaint: ABD PAIN AFTER COLONOSCOPY PER PT Time Seen by Provider: 08/09/18 21:25 Hx Obtained From: Patient Onset/Duration: Sudden Onset, Lasting Hours, Still Present Timing: Constant, Lasting Hours Severity Initially: Mild Severity Currently: Mild Pain Intensity: 1 Pain Scale Used: 0-10 Numeric Location: Discrete At: LUQ Radiates: No Character: Cramping Aggravating Factor(s): Food Alleviating Factor(s): Nothing Associated Signs And Symptoms: Negative: Fever, Vomiting - Allergies/Home Medications Allergies/Adverse Reactions: Allergies Allergy/AdvReac Type Severity Reaction Status Date / Time No Known Allergies Allergy Verified 08/09/18 20:19 PMH/Surg Hx/FS Hx/Imm Hx Previously Healthy: Yes Endocrine/Hematology History: Denies: Hx Diabetes, Hx Thyroid Disease Cardiovascular History: Reports: Hx Hypertension, Other Cardiovascular Problems/ Disorders - OBESITY Denies: Hx Hypercholesterolemia, Hx Pacemaker/ICD, Hx Peripheral Vascular Disease History: Denies: Hx Renal Disease Musculoskeletal History: Denies: Hx Arthritis, Hx Rheumatoid Arthritis, Hx Osteoporosis, Hx Scoliosis Sensory History: Denies: Hx Cataracts, Hx Contacts or Glasses, Hx Glaucoma, Hx Hearing Aid Opthamlomology History: Denies: Hx Cataracts, Hx Contacts or Glasses, Hx Glaucoma Neurological History: Denies: Hx Headaches, Hx Seizures, Hx Transient Ischemic Attacks (TIA), Other Neuro Impairments/Disorders Psychiatric History: Reports: Hx Anxiety, Hx Depression Denies: Hx Panic Disorder - Surgical History Surgery Procedure, Year, and Place: WISDOM TEETH - Immunization History Date of Influenza Vaccine: has not received Infectious Disease History: No Infectious Disease History: Denies: Traveled Outside the [place] in Last 30 Days - Family History Known Family History: Positive: Cardiac Disease - father - [place] at 60 y/o, Hypertension, Other - obesity Negative: Diabetes - Social History Alcohol Use: None Hx Substance Use: No Substance Use Type: Reports: None Hx Tobacco Use: Yes Smoking Status (MU): Former Smoker Review of Systems Negative: Fever Positive: Abdominal Pain. Negative: Vomiting All Other Systems Reviewed And Are Negative: Yes Physical Exam - Summary Physical Exam Summary: VITAL SIGNS: Reviewed. GENERAL: Patient is a morbidly obese male who is lying comfortable in the stretcher. Patient is not in any acute respiratory distress. HEAD AND FACE: No signs of trauma. No ecchymosis, hematomas or skull depressions. No sinus tenderness. EYES: PERRLA, EOMI x 2, No injected conjunctiva, no nystagmus. EARS: Hearing grossly intact. Ear canals and tympanic membranes are within normal limits. MOUTH: Oropharynx within normal limits. NECK: Supple, trachea is midline, no adenopathy, no JVD, no carotid bruit, no c- spine tenderness, neck with full ROM. CHEST: Symmetric, no tenderness at palpation LUNGS: Clear to auscultation bilaterally. No wheezing or crackles. CVS: Regular rate and rhythm, S1 and S2 present, no murmurs or gallops appreciated. ABDOMEN: Epigastric tenderness. No signs of distention. No rebound no guarding, and no masses palpated. Bowel sounds are normal. EXTREMITIES: FROM in all major joints, no edema, no cyanosis or clubbing. NEURO: Alert and oriented x 3. No acute neurological deficits. Speech is normal and follows commands. SKIN: Dry and warm Triage Information Reviewed: Yes Vital Signs On Initial Exam: Initial Vitals Temp Pulse Resp BP Pulse Ox 98.5 F 90 16 123/87 95 08/09/18 20:13 08/09/18 20:13 08/09/18 20:13 08/09/18 20:13 08/09/18 20:13 Vital Signs Reviewed: Yes Diagnostics - Vital Signs Vital Signs Temp Pulse Resp BP Pulse Ox 08/09/18 20:13 98.5 F 90 16 123/87 95 - Laboratory Result Diagrams: 08/09/18 21:55 08/09/18 21:55 Lab Statement: Any lab studies that have been ordered have been reviewed, and results considered in the medical decision making process. - CT Abd/pelv CT CT Interpretation Completed By: Radiologist Summary of CT Findings: Right upper and lower lobe findings of subsegmental atelectasis, atypical viral pneumonia, or parenchymal scarring. No additional findings to correlate with patient's symptomatology. ED physician has reviewed this report. Abdominal Pain Male Course/Dx - Course Course Of Treatment: Pt is a 48 y/o M presenting to the ED with a chief complaint of LUQ abd pain onset 1800. He had an endoscopy and colonoscopy today around 1300, returned home around 1600, ate a banana and mashed potatoes, only passed gas once, and then his abd pain began again. He usually has this pain, and he takes Prilosec for it, but he did not take it today. Abd/pelv CT shows: Right upper and lower lobe findings of subsegmental atelectasis, atypical viral pneumonia, or parenchymal scarring. No additional findings to correlate with patient's symptomatology. ED physician has reviewed this report. The pt will be sent home with a dx of epigastric pain and instructions to follow up with his primary care physician. The pt is agreeable with this plan. - Diagnoses Provider Diagnoses: Epigastric pain Discharge - Sign-Out/Discharge Documenting (check all that apply): Patient Departure Patient Received Moderate/Deep Sedation with Procedure: No - Discharge Plan Condition: Stable Disposition: HOME Referrals: Jonah ORDONEZ,Moreno Rogers [Primary Care Provider] - Additional Instructions: Please follow up with your primary care provider within the next 2-3 days. Return to the emergency department with any new or worsening symptoms. - Billing Disposition and Condition Condition: STABLE Disposition: Home - Attestation Statements Document Initiated by Jesi: Yes Documenting Scribe: Colleen Alicia Provider For Whom Jesi is Documenting (Include Credential): Yves Rick MD. Scribe Attestation: Colleen Miller scribed for Yves Rick MD. on 08/10/18 at 0547. Scribe Documentation Reviewed: Yes Provider Attestation: The documentation as recorded by the Colleen rajput accurately reflects the service I personally performed and the decisions made by me, Yves Rick MD. Status of Scribe Document: Viewed
[2018-08-09 22:01] LABS: ABS Basophils 0.1 10^3/ul (0-0.2); ABS Eosinophils 0.1 10^3/ul (0-0.6); ABS Lymphocytes 1.4 10^3/ul (1.0-4.8); ABS Monocytes 0.6 10^3/ul (0-0.8); ABS Neutrophils 5.7 10^3/ul (1.5-7.7); ABS Nucleated RBC 0 10^3/ul; Eosinophil % 1.7 %; Hematocrit 38 % (36-46); Hemoglobin 12.9 g/dL (14.0-18.0); Lymphocyte % 18.1 %; Mean Corpuscular HGB Conc 34 g/dL (31-36); Mean Corpuscular Hemoglobin 29 pg (27-31); Mean Corpuscular Volume 86 fL (80-94); Mean Platelet Volume 8.5 fL (7.4-10.4); Nucleated Red Blood Cells % 0.1; Platelet Count 210 10^3/uL (150-450); Red Blood Count 4.42 10^6 /uL (4.18-5.48); Red Cell Distribution Width 15 % (10.5-15)
[2018-08-09] MEDS ORDERED: Iohexol 300* (CONTRAST) 10 ML SDV IV ONE (22:01)
[2018-08-09 22:19] LABS: Albumin 3.7 g/dL (3.2-5.2); Albumin/Globulin Ratio 1.1 (1-3); BUN/Creatinine Ratio 11.3 (8-20); C Reactive Protein 18.36 mg/L (<8.01); Calcium 8.8 mg/dL (8.6-10.3); EGFR African American 168.3 (>60); EGFR Non-African American 139.1 (>60); Globulin 3.5 g/dL (2-4); Potassium 3.3 mmol/L (3.5-5.0); Total Bilirubin 0.3 mg/dL (0.2-1.0); Total Protein 7.2 g/dL (6.4-8.9)
[2018-08-10 00:11] VITALS: BP 114/83
== END 2018-08-10 00:10 | disposition home or self-care (01) ==
LOC: ED 20:08
DX: R10.13 Epigastric pain (principal); I10 Essential (primary) hypertension; Z87.891 Personal history of nicotine dependence; Z98.890 Other specified postprocedural states
CPT/HCPCS: 36415; 71260; 74177; 80053; 82150; 83690; 85025; 86140; 96374; 96375; 99283; A9270-GY; Q9967

== ENCOUNTER 2020-11-23 19:56 | Observation (INO) ==
[2020-11-23] MEDS ORDERED: NS 0.9% 1000 ml BAG 1,000 ML IV ONE ×2 (20:29→21:49)
[2020-11-23 21:29] LABS: ABS Basophils 0.1 10^3/ul (0-0.2); ABS Monocytes 1.3 10^3/ul (0-0.8); ABS Neutrophils 16.2 10^3/ul (1.5-7.7); Eosinophil % 0.1 %; Hematocrit 41 % (42-52); Hemoglobin 13.8 g/dL (14.0-18.0); Lymphocyte % 5.4 %; Mean Corpuscular HGB Conc 34 g/dL (31-36); Mean Corpuscular Hemoglobin 30 pg (27-31); Mean Corpuscular Volume 90 fL (80-94); Mean Platelet Volume 8.2 fL (7.4-10.4); Nucleated Red Blood Cells % 0.1; Platelet Count 216 10^3/uL (150-450); Red Blood Count 4.56 10^6 /uL (4.18-5.48); Red Cell Distribution Width 15 % (10-15); White Blood Count 18.5 10^3/uL (3.5-10.8)
[2020-11-23 21:41] LABS: C Reactive Protein 62.15 mg/L (<8.01); Lipase 14 U/L (11.0-82.0)
[2020-11-23] MEDS ORDERED: Ondansetron 4 mg VIAL 2 MG/ML 2 ml VIAL IV ONE (21:49)
[2020-11-23] MEDS ORDERED: Morphine 4 MG/ML VIAL (1 ml) IV ONE ×2 (21:49→22:59)
[2020-11-23 21:52] LABS: Troponin I 0.01 ng/mL (<0.03)
[2020-11-23] MEDS ORDERED: Piperacillin/Tazobac ADVAN 3.375 GM in NS 0.9% 100 ml BAG 100 ML IVPB ONE (23:12)
[2020-11-24] MEDS ORDERED: Ondansetron 4 mg VIAL 2 MG/ML 2 ml VIAL IV PRN (00:12)
[2020-11-24] MEDS ORDERED: Zosyn per Pharmacy NOTE FOLLOW UP SCH (01:00)
[2020-11-24 01:36] LABS: INR 1.1 (0.86-1.15)
[2020-11-24 01:42] LABS: ALT 51 U/L (7-52); Albumin/Globulin Ratio 1.1 (1-3); Alkaline Phosphatase 74 U/L (35-149); Blood Urea Nitrogen 11 mg/dL (6-24); CO2 Carbon Dioxide 24 mmol/L (22-32); Calcium 9.3 mg/dL (8.6-10.3); Chloride 96 mmol/L (101-111); EGFR Non-African American 119.9 (>60); Globulin 3.7 g/dL (2-4); Glucose 163 mg/dL (70-100); Magnesium 1.6 mg/dL (1.9-2.7); Sodium 133 mmol/L (135-145); Total Protein 7.7 g/dL (6.4-8.9)
[2020-11-24] MEDS ORDERED: Magnesium Sulf 4 GM/100 ML IV 4,000 MG/100 ML BAG IVPB ONE (02:01)
[2020-11-24 02:06] LABS: Anion Gap 13 mmol/L (2-11)
[2020-11-24] MEDS: NS 0.9% 1000 ml BAG 1,000 ML IV SCH ×2 (02:32→17:45)
[2020-11-24 02:37] LABS: Potassium Redraw 3.2 mmol/L (3.5-5.0)
[2020-11-24] MEDS: ZOSYN 3.375 GM Q8H per EXTENDED INFUSION IV SCH ×3 (05:21→20:15)
[2020-11-24 06:16] LABS: Hematocrit 37 % (42-52); Hemoglobin 12.3 g/dL (14.0-18.0); Mean Corpuscular HGB Conc 33 g/dL (31-36); Mean Corpuscular Hemoglobin 30 pg (27-31); Mean Corpuscular Volume 91 fL (80-94); Mean Platelet Volume 7.9 fL (7.4-10.4); Platelet Count 173 10^3/uL (150-450); Red Blood Count 4.03 10^6 /uL (4.18-5.48); Red Cell Distribution Width 15 % (10-15); White Blood Count 18.6 10^3/uL (3.5-10.8)
[2020-11-24] MEDS: KCL 20 MEQ/100 ML IVPREMIX 20 MEQ/100 ML BAG IV SCH ×3 (06:28→15:18)
[2020-11-24 06:38] LABS: Calcium 8.4 mg/dL (8.6-10.3); EGFR African American 163.8 (>60); EGFR Non-African American 135.4 (>60); Potassium 3.2 mmol/L (3.5-5.0)
[2020-11-24 06:43] LABS: ABS Basophils 0.1 10^3/ul (0-0.2); ABS Lymphocytes 0.6 10^3/ul (1.0-4.8); ABS Monocytes 1.7 10^3/ul (0-0.8); ABS Neutrophils 16.2 10^3/ul (1.5-7.7); Eosinophil % 0.1 %; Lymphocyte % 3.3 %
[2020-11-24 07:29] LABS: Urine Appearance Cloudy; Urine Bilirubin Negative (Negative); Urine Blood 2+ (Negative); Urine Color Amber; Urine Glucose 1+(50 mg/dL) (Negative); Urine Ketones Trace (Negative); Urine Nitrite Negative (Negative); Urine Protein 1+(30 mg/dL) (Negative); Urine Specific Gravity 1.026 (1.002-1.030); Urine Urobilinogen Negative (Negative)
[2020-11-24 08:13] LABS: Urine Bacteria Absent (Absent); Urine Red Blood Cell Trace(0-2/hpf) (Absent); Urine Squamous Epithelial Cell Present (Absent); Urine White Blood Cell Trace(0-5/hpf) (Absent)
[2020-11-24] MEDS: Vitamin THERAPEUTIC TAB PO SCH (10:45)
[2020-11-24] MEDS: Cholecalciferol (VIT D3) 1,000 unit TAB PO SCH (10:45)
[2020-11-24] MEDS ORDERED: Dextrose 50% Syringe 50 ml 25 GM/50 ML SYRINGE IV PUSH PRN (12:15)
[2020-11-24] MEDS ORDERED: Polyethylene Glycol 3350 17 GM PACKET PO PRN (14:32)
[2020-11-24] MEDS ORDERED: Senna TAB 8.6 mg TAB PO PRN (14:32)
[2020-11-24] MEDS ORDERED: KCL 20 MEQ/100 ML IVPREMIX 20 MEQ/100 ML BAG ONE (15:16)
[2020-11-25] MEDS: ZOSYN 3.375 GM Q8H per EXTENDED INFUSION IV SCH ×2 (04:01→14:15)
[2020-11-25] MEDS: NS 0.9% 1000 ml BAG 1,000 ML IV SCH (04:04)
[2020-11-25 04:50] LABS: ABS Eosinophils 0.1 10^3/ul (0-0.6); ABS Monocytes 1.1 10^3/ul (0-0.8); ABS Neutrophils 14.4 10^3/ul (1.5-7.7); Eosinophil % 0.5 %; Hematocrit 35 % (42-52); Hemoglobin 11.6 g/dL (14.0-18.0); Lymphocyte % 5.8 %; Mean Corpuscular HGB Conc 34 g/dL (31-36); Mean Corpuscular Hemoglobin 31 pg (27-31); Mean Corpuscular Volume 91 fL (80-94); Mean Platelet Volume 7.9 fL (7.4-10.4); Platelet Count 154 10^3/uL (150-450); Red Blood Count 3.79 10^6 /uL (4.18-5.48); Red Cell Distribution Width 15 % (10-15); White Blood Count 16.7 10^3/uL (3.5-10.8)
[2020-11-25 05:07] LABS: C Reactive Protein 178.48 mg/L (<8.01); Calcium 8.2 mg/dL (8.6-10.3); EGFR African American 152.6 (>60); EGFR Non-African American 126.1 (>60); Potassium 3.5 mmol/L (3.5-5.0)
[2020-11-25] MEDS: Cholecalciferol (VIT D3) 1,000 unit TAB PO SCH (08:54)
[2020-11-25] MEDS: Vitamin THERAPEUTIC TAB PO SCH (08:55)
[2020-11-25 11:30] VITALS: BP 133/85
== END 2020-11-25 15:22 | disposition home or self-care (01) ==
LOC: SSU 19:56 → ED 19:56 → SSU 11-24 01:28
PROVIDERS: ADMIT Internal Medicine; ATTEND Internal Medicine